=== PATIENT | female | born 1940 | race Caucasian/White ===

== ENCOUNTER 2017-12-23 22:01 | Emergency (ER) | payer SELFPAY ==
[~2017-12-23] VITALS: Ht 149.9 cm; Wt 68.7 kg
[2017-12-23 22:17] VITALS: Ht 149.9 cm; Wt 68.7 kg
[2017-12-24 00:25] VITALS: BP 131/83
== END 2017-12-24 00:25 | disposition home or self-care (01) ==
LOC: ED 22:01
DX: L03.113 Cellulitis of right upper limb (principal)
CPT/HCPCS: J1885; Q0092